=== PATIENT | female | born 1935 | race Caucasian/White ===

== ENCOUNTER 2018-03-23 13:51 | Emergency (ER) | payer OTHER ==
[2018-03-23] MEDS ORDERED: FENTANYL CITR 100 MCG/2 ML ONE (14:22)
[2018-03-23] MEDS ORDERED: ONDANSETRON 4 MG/2 ML VIAL ONE (14:22)
[2018-03-23] MEDS ORDERED: NA CHLORIDE 0.9% 1,000 ML ONE (14:22)
[2018-03-23] MEDS ORDERED: NA CHLORIDE 0.9% 100 ML IV ONE (14:22)
[2018-03-23] MEDS ORDERED: DEXAMETHASONE 10 MG/ML VIAL ONE (14:22)
[2018-03-23] MEDS ORDERED: DIAZEPAM 5 MG TABLET ONE (14:22)
--- NOTE | 2018-03-23 14:51 | RAD REPORT ---
EXAM DESCRIPTION: CTSpine Lumbar Wo Con03/23/2018 2:24 pm CLINICAL HISTORY: Left radiculopathy/back pain COMPARISON: None TECHNIQUE: Computed axial tomography lumbar spine was obtained with coronal and sagittal reconstruct ion. All CT scans are performed using dose optimization technique as appropriate and may include automated exposure control or mA/KV adjustment according to patient size. FINDINGS: No fracture is seen. No dislocation is noted. L2-3 disc is thinned. Vacuum phenomena is seen. A disc bulge is present. Disc bulge is present at L3-4. Mild narrowing of the thecal sac is seen. Disc bulge ligamentum flavum and facet hypertrophy is present at L4-5. Thecal sac measures 9 millimet ers. Mild to moderate narrowing of the right neural foramina is seen. Mild anterior subluxation of L5 on S1 is seen. Disc bulge is present. A 7 millimeter left renal calculus is present. Low-density right renal masses are present largest lashay suring 4.2 centimeters. IMPRESSION: Negative for a lumbar fracture. Spondylosis. Mild central spinal stenosis is present L4-5 with mild to moderate right foraminal steno sis Nonobstructing left renal calculus Low-density right renal masses. Nonemergent renal ultrasound is recommended If clinically indicated further evaluation lumbar spine could be obtained with MRI as it is more sens itive in detecting spinal canal/neural foraminal pathology
[2018-03-23 15:17] LABS: Absolute Lymphocytes (CBC) 1.3 K/uL (0.7-4.9); Absolute Monocytes 0.3 K/uL (0.1-1.3); Absolute Neutrophil 2.8 K/uL (1.8-8.0); Basophils % 0.3 % (0-1.3); Eosinophils % 0.2 % (0-4.4); Hematocrit 41.9 % (36.0-45.0); Lymphocytes % 28.7 % (15.3-44.8); MCH 29.8 pg (27.0-35.0); MCV 88.3 fL (80-100); MPV 9.2 fL (7.6-11.3); Monocytes % 6.9 % (3.3-12.3); RBC Red Blood Cell Count 4.75 M/uL (3.86-4.86)
[2018-03-23 15:32] LABS: ALT/SGPT 24 U/L (12-78); AST/SGOT 28 U/L (15-37); Albumin 4.3 g/dL (3.4-5.0); Alkaline Phosphatase 66 U/L (45-117); BUN Blood Urea Nitrogen 10 mg/dL (7-18); Bicarbonate 31 mmol/L (21-32); Bilirubin Total 0.5 mg/dL (0.2-1.0); Glucose Level 73 mg/dL (74-106); Lipase 286 U/L (73-393); Potassium 3.6 mmol/L (3.5-5.1); Protein, Total 8.7 g/dL (6.4-8.2); Sodium Level 140 mmol/L (136-145)
--- NOTE | 2018-03-23 15:54 | ER ---
Nurse's Notes [facility] Name: Cristina Jones Age: 82 yrs Sex: Female : 1935 Arrival Date: 03/23/2018 Time: 13:53 Bed 11 Private MD: Giovanny Lynch R Diagnosis: Low back pain;Sciatica;Urinary tract infection, site not specified;Spinal stenosis, lumbosacral region Presentation: 03/23 13:59 Presenting complaint: Patient states: pain to Lower back, more on the left, going into ch the buttock, hip and leg. This has been going for the past two weeks, getting worse. Transition of care: patient was not received from another setting of care. Onset of symptoms was March 10, 2018. Risk Assessment: Do you want to hurt yourself or someone else? Patient reports no desire to harm self or others. Initial Sepsis Screen: Does the patient meet any 2 criteria? No. Patient's initial sepsis screen is negative. Does the patient have a suspected source of infection? No. Patient's initial sepsis screen is negative. Care prior to arrival: None. 13:59 Method Of Arrival: Wheelchair 13:59 Acuity: MARVIN 4 Triage Assessment: 14:01 General: Appears in no apparent distress. uncomfortable, Behavior is calm, cooperative, appropriate for age. Pain: Complains of pain in low back area, left gluteus ashley and left leg Pain currently is 10 out of 10 on a pain scale. Musculoskeletal: Capillary refill < 3 seconds, in bilateral fingers. toes. Historical: - Allergies: 14:01 Augmentin; 14:01 Codeine (Vomiting); 14:01 PENICILLINS; - PMHx: 14:01 Hypertension; resolved; staph infection in nose; ruptured disk in neck; - PSHx: 14:01 Heart stents; - Immunization history:: Adult Immunizations up to date. - Social history:: Smoking status: Patient/guardian denies using tobacco. - Ebola Screening: : Patient negative for fever greater than or equal to 101.5 degrees Fahrenheit, and additional compatible Ebola Virus Disease symptoms Patient denies exposure to infectious person Patient denies travel to an Ebola-affected area in the 21 days before illness onset No symptoms or risks identified at this time. - Family history:: not pertinent. Screenin:11 Abuse screen: Denies threats or abuse. Denies injuries from another. Nutritional ch screening: No deficits noted. Tuberculosis screening: No symptoms or risk factors identified. Fall Risk None identified. Assessment: 14:11 General: Appears in no apparent distress. comfortable, Behavior is calm, cooperative, ch appropriate for age. Neuro: No deficits noted. Level of Consciousness is awake, alert, obeys commands, Oriented to person, place, time, situation. Respiratory: Airway is patent Respiratory effort is even, unlabored. GI: No signs and/or symptoms were reported involving the gastrointestinal system. : Reports difficulty urinating. 15:16 Reassessment: Patient appears in no apparent distress at this time. Patient is alert, rv oriented x 3, equal unlabored respirations, skin warm/dry/pink. PATIENT REFUSED ANY PAIN MEDICATION. Vital Signs: 14:01 BP 150 / 88; Pulse 89; Resp 16; Temp 98.1; Pulse Ox 99% on R/A; Weight 49.9 kg; Height 4 ft. 11 in. (149.86 cm); Pain 10/10; 14:01 Body Mass Index 22.22 (49.90 kg, 149.86 cm) ED Course: 13:53 Patient arrived in ED. mr 13:54 Giovanny Lynch MD is Private Physician. mr 14:00 Triage completed. 14:01 Arm band placed on left wrist. Patient placed in an exam room, on a stretcher. 14:04 Alise Silva, LAURA is Primary Nurse. 14:06 Sean Harrison MD is Attending Physician. [facility] 14:11 No apparent distress. Resting quietly. 14:11 Patient has correct armband on for positive identification. Bed in low position. Call light in reach. Side rails up X 1. Adult w/ patient. Warm blanket given. Pillow given. 14:11 No provider procedures requiring assistance completed. ch 14:25 CT Lumbar Spine Wo Con In Process Unspecified. EDMS 15:53 Giovanny Lynch MD is Referral Physician. kate 16:47 IV discontinued, bleeding controlled, No redness/swelling at site. Pressure dressing rv applied. Administered Medications: 15:05 Drug: NS 0.9% 1000 ml Route: IV; Rate: 125 ml/hr; Site: right antecubital; rv 16:46 Follow up: IV Status: IV converted to saline lock rv 15:05 Drug: Decadron - Dexamethasone 10 mg Route: IVP; Site: right antecubital; rv 16:22 Drug: Rocephin - (cefTRIAXone) 1 grams Route: IVPB; Infused Over: 30 mins; Site: right rv antecubital; 16:45 Follow up: Response: Medication administered at discharge.; IV Status: Completed rv infusion 16:45 Not Given (Patient Refused): fentaNYL (PF) 25 mcg IVP once rv 16:45 Not Given (Patient Refused): Zofran 4 mg IVP once; over 2 minutes rv 16:45 Not Given (Patient Refused): Valium 5 mg PO once rv 16:46 Not Given (Patient Refused): fentaNYL (PF) 25 mcg IVP once rv Outcome: 15:53 Discharge ordered by MD. love 16:46 Discharged to home via wheelchair. rv 16:46 Condition: improved 16:46 Discharge instructions given to patient, family, Instructed on discharge instructions, follow up and referral plans. medication usage, Demonstrated understanding of instructions, follow-up care, medications, Prescriptions given X 5 16:47 Patient left the ED. rv Signatures: Dispatcher [employer] EDMS Alise Silva, Sean Staley RN, ch, MD MD cha Rivera, Mary mr Vicente, Ronaldo, RN RN rv
--- NOTE | 2018-03-23 15:54 | EDPHYS ---
Physician Documentation [facility] Name: Cristina Jones Age: 82 yrs Sex: Female : 1935 Arrival Date: 03/23/2018 Time: 13:53 Bed 11 Private MD: Giovanny Lynch R ED Physician Sean Harrison HPI: 03/23 14:12 This 82 yrs old Female presents to ER via Wheelchair with complaints of Back kate Pain. 14:12 The patient presents with pain that is acute, with no known mechanism of injury. The kate symptoms are located in the low back, coccyx area, lumbar area and sacrum. Onset: The symptoms/episode began/occurred 2 day(s) ago. The pain radiates to the left low back and right low back. Associated signs and symptoms: The patient has no apparent associated signs or symptoms. The problem was sustained from unknown cause. Severity of symptoms: At their worst the symptoms were mild, moderate, in the emergency department the symptoms are unchanged. The patient has not experienced similar symptoms in the past. Historical: - Allergies: 14:01 Augmentin; ch 14:01 Codeine (Vomiting); ch 14:01 PENICILLINS; ch - PMHx: 14:01 Hypertension; resolved; staph infection in nose; ruptured disk in neck; ch - PSHx: 14:01 Heart stents; ch - Immunization history:: Adult Immunizations up to date. - Social history:: Smoking status: Patient/guardian denies using tobacco. - Ebola Screening: : Patient negative for fever greater than or equal to 101.5 degrees Fahrenheit, and additional compatible Ebola Virus Disease symptoms Patient denies exposure to infectious person Patient denies travel to an Ebola-affected area in the 21 days before illness onset No symptoms or risks identified at this time. - Family history:: not pertinent. ROS: 14:12 Constitutional: Negative for fever, chills, and weight loss, Eyes: Negative for injury, kate pain, redness, and discharge, ENT: Negative for injury, pain, and discharge, Neck: Negative for injury, pain, and swelling, Cardiovascular: Negative for chest pain, palpitations, and edema, Respiratory: Negative for shortness of breath, cough, wheezing, and pleuritic chest pain, Abdomen/GI: Negative for abdominal pain, nausea, vomiting, diarrhea, and constipation, : Negative for injury, bleeding, discharge, and swelling, MS/Extremity: Negative for injury and deformity, Skin: Negative for injury, rash, and discoloration, Neuro: Negative for headache, weakness, numbness, tingling, and seizure, Psych: Negative for depression, anxiety, suicide ideation, homicidal ideation, and hallucinations, Allergy/Immunology: Negative for hives, rash, and allergies, Endocrine: Negative for neck swelling, polydipsia, polyuria, polyphagia, and marked weight changes, Hematologic/Lymphatic: Negative for swollen nodes, abnormal bleeding, and unusual bruising. 14:12 Back: Positive for decreased range of motion, pain with movement, of the lumbar area and sacrum. Exam: 14:12 Constitutional: This is a well developed, well nourished patient who is awake, alert, kate and in no acute distress. Head/Face: Normocephalic, atraumatic. Eyes: Pupils equal round and reactive to light, extra-ocular motions intact. Lids and lashes normal. Conjunctiva and sclera are non-icteric and not injected. Cornea within normal limits. Periorbital areas with no swelling, redness, or edema. ENT: Nares patent. No nasal discharge, no septal abnormalities noted. Tympanic membranes are normal and external auditory canals are clear. Oropharynx with no redness, swelling, or masses, exudates, or evidence of obstruction, uvula midline. Mucous membranes moist. Neck: Trachea midline, no thyromegaly or masses palpated, and no cervical lymphadenopathy. Supple, full range of motion without nuchal rigidity, or vertebral point tenderness. No Meningismus. Chest/axilla: Normal chest wall appearance and motion. Nontender with no deformity. No lesions are appreciated. Cardiovascular: Regular rate and rhythm with a normal S1 and S2. No gallops, murmurs, or rubs. Normal PMI, no JVD. No pulse deficits. Respiratory: Lungs have equal breath sounds bilaterally, clear to auscultation and percussion. No rales, rhonchi or wheezes noted. No increased work of breathing, no retractions or nasal flaring. Abdomen/GI: Soft, non-tender, with normal bowel sounds. No distension or tympany. No guarding or rebound. No evidence of tenderness throughout. Female : Normal external genitalia. Skin: Warm, dry with normal turgor. Normal color with no rashes, no lesions, and no evidence of cellulitis. MS/ Extremity: Pulses equal, no cyanosis. Neurovascular intact. Full, normal range of motion. Neuro: Awake and alert, GCS 15, oriented to person, place, time, and situation. Cranial nerves II-XII grossly intact. Motor strength 5/5 in all extremities. Sensory grossly intact. Cerebellar exam normal. Normal gait. Psych: Awake, alert, with orientation to person, place and time. Behavior, mood, and affect are within normal limits. 14:12 Back: pain, that is mild, that is moderate, ROM is painful, decreased, normal spinal alignment noted, CVA tenderness, is absent, vertebral tenderness, is not appreciated, muscle spasm, is appreciated in the left low back and right low back. Vital Signs: 14:01 BP 150 / 88; Pulse 89; Resp 16; Temp 98.1; Pulse Ox 99% on R/A; Weight 49.9 kg; Height 4 ft. 11 in. (149.86 cm); Pain 10; 14:01 Body Mass Index 22.22 (49.90 kg, 149.86 cm) MDM: 14:06 Patient medically screened. [facility] 14:12 Data reviewed: vital signs, nurses notes, lab test result(s), radiologic studies. [facility] 03/23 14:11 Order name: CBC with Diff; Complete Time: 15:51 [facility] 03/23 14:11 Order name: Comprehensive Metabolic Panel; Complete Time: 15:51 [facility] 03/23 14:11 Order name: Urine Culture [facility] 03/23 14:11 Order name: CT Lumbar Spine Wo Con; Complete Time: 15:51 [facility] 03/23 14:11 Order name: Lipase; Complete Time: 15:51 [facility] 03/23 15:27 Order name: Urine Dipstick--Ancillary (enter results); Complete Time: 16:15 03/23 14:11 Order name: Urine Dipstick-Ancillary (obtain specimen); Complete Time: 15:26 [facility] 03/23 16:16 Order name: PO challenge: juice; Complete Time: 16:45 [facility] Administered Medications: 15:05 Drug: NS 0.9% 1000 ml Route: IV; Rate: 125 ml/hr; Site: right antecubital; rv 16:46 Follow up: IV Status: IV converted to saline lock rv 15:05 Drug: Decadron - Dexamethasone 10 mg Route: IVP; Site: right antecubital; rv 16:22 Drug: Rocephin - (cefTRIAXone) 1 grams Route: IVPB; Infused Over: 30 mins; Site: right rv antecubital; 16:45 Follow up: Response: Medication administered at discharge.; IV Status: Completed rv infusion 16:45 Not Given (Patient Refused): fentaNYL (PF) 25 mcg IVP once rv 16:45 Not Given (Patient Refused): Zofran 4 mg IVP once; over 2 minutes rv 16:45 Not Given (Patient Refused): Valium 5 mg PO once rv 16:46 Not Given (Patient Refused): fentaNYL (PF) 25 mcg IVP once rv Disposition: 03/23/18 15:53 Discharged to Home. Impression: Low back pain, Sciatica, Urinary tract infection, site not specified, Spinal stenosis, lumbosacral region. - Condition is Stable. - Discharge Instructions: Back Pain, Adult, Chronic Back Pain, Musculoskeletal Pain, Urinary Tract Infection, Adult, Back Injury Prevention, [id number], Back Pain, Adult, Cwqc-[id number], Back Exercises, Pdff-[id number]. - Prescriptions for Tramadol 50 mg Oral Tablet - take 1 tablet by ORAL route every 8 hours as needed; 26 tablet. Medrol (Stewart) 4 mg Oral Tablets, Dose Pack - take 1 tablet by ORAL route as directed - follow package instructions; 1 packet. Motrin IB 200 mg Oral Tablet - take 1 tablet by ORAL route every 6 hours As needed as needed with food; 40 tablet. Bactrim DS 800- 160 mg Oral Tablet - take 1 tablet by ORAL route every 12 hours for 5 days; 1 tablet. Valium 2 mg Oral Tablet - take 1 tablet by ORAL route every 8 hours As needed; 20 tablet. - Medication Reconciliation Form, Thank You Letter, Antibiotic Education, Prescription Opioid Use form. - Follow up: Giovanny Lynch; When: 2 - 3 days; Reason: Recheck today's complaints, Continuance of care, Re-evaluation by your physician. - Problem is new. - Symptoms have improved. Signatures: Dispatcher [employer] Alise Barraza, RN RN Sean Perales MD MD cha Vicente, Ronaldo, RN RN rv Corrections: (The following items were deleted from the chart) 15:55 15:53 03/23/2018 15:53 Discharged to Home. Impression: Low back pain; Sciatica; Urinary kate tract infection, site not specified. Condition is Stable. Discharge Instructions: Back Pain, Adult, Chronic Back Pain, Musculoskeletal Pain, Back Injury Prevention, Xquw-kc-Jeap, Back Pain, Adult, Vqzx-[id number]-Phcu, Back Exercises, Vzjv-[id number]-Dzcp. Prescriptions for Robaxin 500 mg Oral Tablet - take 1 tablet by ORAL route every 6 hours As needed; 40 tablet, Tramadol 50 mg Oral Tablet - take 1 tablet by ORAL route every 8 hours as needed; 26 tablet, Medrol (Stewart) 4 mg Oral Tablets, Dose Pack - take 1 tablet by ORAL route as directed - follow package instructions; 1 packet, Motrin IB 200 mg Oral Tablet - take 1 tablet by ORAL route every 6 hours As needed as needed with food; 40 tablet. and Forms are Medication Reconciliation Form, Thank You Letter, Antibiotic Education, Prescription Opioid Use. Follow up: Giovanny Lynch; When: 2 - 3 days; Reason: Recheck today's complaints, Continuance of care, Re-evaluation by your physician. Problem is new. Symptoms have improved. [facility] 16:47 15:55 03/23/2018 15:53 Discharged to Home. Impression: Low back pain; Sciatica; Urinary rv tract infection, site not specified; Spinal stenosis, lumbosacral region. Condition is Stable. Discharge Instructions: Back Pain, Adult, Chronic Back Pain, Musculoskeletal Pain, Back Injury Prevention, [id number], Back Pain, Adult, Ygid-[id number], Back Exercises, Itps-uo-Bovj, Urinary Tract Infection, Adult. Prescriptions for Robaxin 500 mg Oral Tablet - take 1 tablet by ORAL route every 6 hours As needed; 40 tablet, Tramadol 50 mg Oral Tablet - take 1 tablet by ORAL route every 8 hours as needed; 26 tablet, Medrol (Stewart) 4 mg Oral Tablets, Dose Pack - take 1 tablet by ORAL route as directed - follow package instructions; 1 packet, Motrin IB 200 mg Oral Tablet - take 1 tablet by ORAL route every 6 hours As needed as needed with food; 40 tablet, Bactrim DS 800-160 mg Oral Tablet - take 1 tablet by ORAL route every 12 hours for 5 days; 1 tablet. and Forms are Medication Reconciliation Form, Thank You Letter, Antibiotic Education, Prescription Opioid Use. Follow up: Giovanny Lynch; When: 2 - 3 days; Reason: Recheck today's complaints, Continuance of care, Re-evaluation by your physician. Problem is new. Symptoms have improved. kate
[2018-03-23 15:55] LABS: Urine Blood NEGATIVE (NEG); Urine Glucose NEGATIVE (NEG); Urine Protein NEGATIVE (NEG); Urine pH 6.5 (5.0-7.0)
[2018-03-23] MEDS ORDERED: CEFTRIAXONE/SWI 1gm 1 GM/10 ML SYR ONE (16:12)
== END 2018-03-23 16:47 | disposition home or self-care (01) ==
LOC: ER 13:51
DX: M54.30 Sciatica, unspecified side (principal); N39.0 Urinary tract infection, site not specified; M48.07 Spinal stenosis, lumbosacral region; Z88.0 Allergy status to penicillin; Z88.1 Allergy status to other antibiotic agents; Z88.5 Allergy status to narcotic agent; Z95.818 Presence of other cardiac implants and grafts
CPT/HCPCS: 36415; 72131; 80053; 81003; 83690; 85025; 87086; 87088; 96361; 96365; 96375; 99283; J0696; J1100; J2405; J7030; J3010

== ENCOUNTER 2018-07-16 11:28 | Emergency (ER) | payer OTHER ==
[2018-07-16 13:54] LABS: Absolute Lymphocytes (CBC) 1.6 K/uL (0.7-4.9); Absolute Monocytes 0.6 K/uL (0.1-1.3); Absolute Neutrophil 6.5 K/uL (1.8-8.0); Basophils % 0.3 % (0-1.3); Eosinophils % 0.1 % (0-4.4); Hematocrit 40.2 % (36.0-45.0); Lymphocytes % 18.2 % (15.3-44.8); MPV 9.2 fL (7.6-11.3); Monocytes % 7.3 % (3.3-12.3); RBC Red Blood Cell Count 4.57 M/uL (3.86-4.86)
[2018-07-16 14:16] LABS: Albumin 4.1 g/dL (3.4-5.0); Bilirubin Direct 0.2 mg/dL (0-0.2); Bilirubin Total 1.1 mg/dL (0.2-1.0); Potassium 3.3 mmol/L (3.5-5.1); Protein, Total 7.9 g/dL (6.4-8.2)
[2018-07-16 14:30] LABS: Protime INR 1.11
--- NOTE | 2018-07-16 16:29 | RAD REPORT ---
EXAM DESCRIPTION: CT - Abdomen Pelvis W Contrast - 07/16/2018 4:03 pm CLINICAL HISTORY: Abdominal pain, rectal bleeding COMPARISON: MRI hip/pelvis February 2018. TECHNIQUE: Biphasic, helical CT imaging of the abdomen and pelvis was performed following 100 ml non -ionic IV contrast. No oral contrast was given. All CT scans are performed using dose optimization technique as appropriate and may include automated exposure control or mA/KV adjustment according to patient size. FINDINGS: No suspicious findings in the lung bases. The liver, spleen, and pancreas show no suspicious findings. Gallbladder is absent. No biliary tree d ilatation. Symmetric renal function is seen with no hydronephrosis or suspicious renal mass. No pyelonephritis o r acute parenchymal process. A 12 millimeter nonobstructing calculus is present in the central left k idney. Patient has multiple cysts in the right kidney. Urinary bladder is mostly contracted limiting assessment. No bladder calculus. No adrenal abnormalities. No gastric dilatation or wall thickening. No dilated small bowel loop or acute small bowel finding. A t the splenic flexure and extending several cm into the descending colon there is circumferential wal l thickening. Mild stranding is present in the adjacent fat. Patient has very prominent diverticulosi s in a tortuous and redundant sigmoid colon. Mid and distal rectum show mild wall thickening and virgen a. There is trace stranding in the adjacent fat. No free air, free fluid or inflammatory stranding. No hernia, mass or bulky lymphadenopathy. Multip le phleboliths are seen in the pelvis. Uterus is somewhat prominent likely due to a fundal fibroid. F inding is similar to the MRI. Disc and bony extensive degenerative changes are present. No pathologic bone process seen. IMPRESSION: Splenic flexure and proximal descending colon wall thickening and edema. There is divert iculosis present and this is most likely acute diverticulitis rather than nonspecific colitis. Mild mid and distal rectal wall thickening or edema that may be diverticulitis or colitis. No abscess, free air or surgically emergent finding.
--- NOTE | 2018-07-16 16:45 | ER ---
Nurse's Notes [facility] Name: Cristina Jones Age: 82 yrs Sex: Female : 1935 Arrival Date: 07/16/2018 Time: 11:29 Bed 2 Private MD: Giovanny Lynch R Diagnosis: Rectal Bleeding, diverticulitis Presentation: 07/16 11:40 Presenting complaint: Patient states: rectal bleeding and generalized weakness x 2 sv days, has hemorrhoids and diverticulitis. Reports that she was constipated and then ate something that gave her abd cramping, had a BM and now has dark red blood and "grainy". Transition of care: patient was not received from another setting of care. Onset of symptoms was June 13, 2018. Care prior to arrival: None. 11:40 Method Of Arrival: Ambulatory sv 11:40 Acuity: MARVIN 3 sv Triage Assessment: 11:40 General: Appears in no apparent distress. comfortable, Behavior is calm, cooperative, sv appropriate for age. Pain: Complains of pain in back Pain currently is 5 out of 10 on a pain scale. Is chronic. Neuro: Level of Consciousness is awake, alert, obeys commands, Oriented to person, place, time, situation, Gait is steady. Neuro: Reports weakness. Respiratory: Respiratory effort is even, unlabored, Respiratory pattern is regular, symmetrical. GI: Reports diarrhea, rectal bleeding, hemorrhoids. Historical: - Allergies: 11:43 Augmentin; sv 11:43 Codeine (Vomiting); sv 11:43 PENICILLINS; sv - PMHx: 11:43 Hypertension; resolved; ruptured disk in neck; staph infection in nose; sv - PSHx: 11:43 Heart stents; sv - Immunization history:: Flu vaccine is not up to date. - Social history:: Smoking status: Patient/guardian denies using tobacco. - Ebola Screening: : No symptoms or risks identified at this time. Screenin:49 Abuse screen: Denies threats or abuse. Denies injuries from another. Nutritional hb screening: No deficits noted. Tuberculosis screening: No symptoms or risk factors identified. Fall Risk None identified. Assessment: 13:49 General: Appears in no apparent distress. Behavior is calm, cooperative. Pain: Pain hb currently is 5 out of 10 on a pain scale. Neuro: Level of Consciousness is awake, alert, obeys commands, Oriented to person, place, time, situation. Cardiovascular: Heart tones S1 S2 present Capillary refill < 3 seconds Patient's skin is warm and dry. Respiratory: Airway is patent Respiratory effort is even, unlabored, Respiratory pattern is regular, symmetrical, Breath sounds are clear bilaterally. GI: Abdomen is non-distended, Bowel sounds present X 4 quads. Abd is soft X 4 quads Abdomen is tender to palpation diffusely Reports lower abdominal pain, upper abdominal pain, bloody stool. : No signs and/or symptoms were reported regarding the genitourinary system. EENT: No signs and/or symptoms were reported regarding the EENT system. Derm: Skin is intact, is healthy with good turgor. Musculoskeletal: No signs and/or symptoms reported regarding the musculoskeletal system. Vital Signs: 11:44 BP 129 / 76; Pulse 76; Resp 16; Temp 98.4; Pulse Ox 97% ; Weight 45.36 kg; Height 4 ft. sv 11 in. (149.86 cm); Pain 5/10; 14:00 BP 126 / 70; Pulse 72; Resp 17; Pulse Ox 97% on R/A; sg 16:00 BP 132 / 72; Pulse 77; Resp 19; Pulse Ox 98% ; sg 11:44 Body Mass Index 20.20 (45.36 kg, 149.86 cm) sv 11:44 Pain is chronic back pain, no abd pain sv ED Course: 11:29 Patient arrived in ED. ag5 11:29 Giovanny Lynch MD is Private Physician. ag5 11:43 Triage completed. sv 11:46 Arm band placed on. sv 13:23 Josh Moran MD is Attending Physician. kdr 13:42 Inserted saline lock: 20 gauge in right antecubital area, using aseptic technique. hb Blood collected. 13:49 Patient has correct armband on for positive identification. Placed in gown. Bed in low hb position. Call light in reach. Side rails up X 1. 14:27 Ryan Mishra, LAURA is Primary Nurse. sg 15:[address] via stretcher. vr 16:03 CT Abd/Pelvis - W/Contrast In Process Unspecified. EDMS 16:43 Giovanny Lynch MD is Referral Physician. kdr Administered Medications: 17:00 Drug: Flagyl 500 mg Route: PO; sg 17:02 Not Given (Other Intervention Used): Cipro 500 mg PO once sg 17:03 Drug: LevaQUIN 500 mg Route: PO; sg Outcome: 16:44 Discharge ordered by . kdr 17:03 Patient left the ED. sg Signatures: Dispatcher [employer] Millie Connelly RN RN sv Gay, Steven, RN RN sg Rittger, Kevin, MD MD kdr Davis, Victoria vr Baxter, Heather, RN RN hb Gaskin, Ajare ag5 Corrections: (The following items were deleted from the chart) 11:51 11:40 Presenting complaint: Patient states: rectal bleeding x 2 days, has hemorrhoids sv and diverticulitis. Reports that she was constipated and then ate something that gave her abd cramping, had a BM and now has dark red blood and "grainy". sv 17:01 17:00 Cipro 500 mg PO sg sg
--- NOTE | 2018-07-16 16:45 | EDPHYS ---
Physician Documentation [facility] Name: Cristina Jones Age: 82 yrs Sex: Female : 1935 Arrival Date: 07/16/2018 Time: 11:29 Bed 2 Private MD: Giovanny Lynch R ED Physician Josh Moran HPI: 07/16 16:39 This 82 yrs old Female presents to ER via Ambulatory with complaints of kdr Bloody Stools. 16:39 The patient presents to the emergency department with rectal bleeding, a small amount, kdr bright red blood with bowel movement, in toilet bowl, with multiple such episodes. Onset: The symptoms/episode began/occurred gradually, 2 day(s) ago. Abdominal pain: none is appreciated. Modifying factors: The symptoms are alleviated by nothing, the symptoms are aggravated by movement, pressure. Associated signs and symptoms: The patient has no apparent associated signs or symptoms. Severity of symptoms: At their worst the symptoms were mild in the emergency department the symptoms are unchanged. The patient has experienced similar episodes in the past, a few times. The patient has not recently seen a physician. Historical: - Allergies: 11:43 Augmentin; sv 11:43 Codeine (Vomiting); sv 11:43 PENICILLINS; sv - PMHx: 11:43 Hypertension; resolved; ruptured disk in neck; staph infection in nose; sv - PSHx: 11:43 Heart stents; sv - Immunization history:: Flu vaccine is not up to date. - Social history:: Smoking status: Patient/guardian denies using tobacco. - Ebola Screening: : No symptoms or risks identified at this time. ROS: 16:39 Constitutional: Negative for fever, chills, and weight loss, Eyes: Negative for injury, kdr pain, redness, and discharge, ENT: Negative for injury, pain, and discharge, Neck: Negative for injury, pain, and swelling, Cardiovascular: Negative for chest pain, palpitations, and edema, Respiratory: Negative for shortness of breath, cough, wheezing, and pleuritic chest pain, Back: Negative for injury and pain, : Negative for injury, bleeding, discharge, and swelling, MS/Extremity: Negative for injury and deformity, Skin: Negative for injury, rash, and discoloration, Neuro: Negative for headache, weakness, numbness, tingling, and seizure activity. Psych: Negative for depression, anxiety, suicide ideation, homicidal ideation, and hallucinations, Allergy/Immunology: Negative for hives, rash, and allergies, Endocrine: Negative for neck swelling, polydipsia, polyuria, polyphagia, and marked weight changes, Hematologic/Lymphatic: Negative for swollen nodes, abnormal bleeding, and unusual bruising. 16:39 Abdomen/GI: Positive for rectal bleeding, Negative for nausea and vomiting, abdominal distension, anorexia, hematemesis, black/tarry stool, bowel incontinence. Exam: 16:39 Constitutional: This is a well developed, well nourished patient who is awake, alert, kdr and in no acute distress. Head/Face: Normocephalic, atraumatic. Eyes: Pupils equal round and reactive to light, extra-ocular motions intact. Lids and lashes normal. Conjunctiva and sclera are non-icteric and not injected. Cornea within normal limits. Periorbital areas with no swelling, redness, or edema. Neck: Trachea midline, no thyromegaly or masses palpated, and no cervical lymphadenopathy. Supple, full range of motion without nuchal rigidity, or vertebral point tenderness. No Meningismus. Chest/axilla: Normal chest wall appearance and motion. Nontender with no deformity. No lesions are appreciated. Cardiovascular: Regular rate and rhythm with a normal S1 and S2. No gallops, murmurs, or rubs. Normal PMI, no JVD. No pulse deficits. Respiratory: Lungs have equal breath sounds bilaterally, clear to auscultation and percussion. No rales, rhonchi or wheezes noted. No increased work of breathing, no retractions or nasal flaring. Abdomen/GI: Soft, non-tender, with normal bowel sounds. No distension or tympany. No guarding or rebound. No evidence of tenderness throughout. Back: No spinal tenderness. No costovertebral tenderness. Full range of motion. Skin: Warm, dry with normal turgor. Normal color with no rashes, no lesions, and no evidence of cellulitis. MS/ Extremity: Pulses equal, no cyanosis. Neurovascular intact. Full, normal range of motion. Neuro: Awake and alert, GCS 15, oriented to person, place, time, and situation. Cranial nerves II-XII grossly intact. Motor strength 5/5 in all extremities. Sensory grossly intact. Cerebellar exam normal. Normal gait. Psych: Awake, alert, with orientation to person, place and time. Behavior, mood, and affect are within normal limits. 16:39 Abdomen/GI: Rectal exam: is unremarkable, rectal tone normal, Stool: normal, guthrie, guaiac negative, hemorrhoid(s), external, without bleeding, without inflammation, without thrombosis, without pain. Vital Signs: 11:44 BP 129 / 76; Pulse 76; Resp 16; Temp 98.4; Pulse Ox 97% ; Weight 45.36 kg; Height 4 ft. sv 11 in. (149.86 cm); Pain 5/10; 14:00 BP 126 / 70; Pulse 72; Resp 17; Pulse Ox 97% on R/A; sg 16:00 BP 132 / 72; Pulse 77; Resp 19; Pulse Ox 98% ; sg 11:44 Body Mass Index 20.20 (45.36 kg, 149.86 cm) sv 11:44 Pain is chronic back pain, no abd pain sv MDM: 16:39 Data reviewed: vital signs, nurses notes, lab test result(s), radiologic studies. kdr Counseling: I had a detailed discussion with the patient and/or guardian regarding: the historical points, exam findings, and any diagnostic results supporting the discharge/admit diagnosis, lab results, radiology results, the need for outpatient follow up. 16:44 Patient medically screened. kdr 07/16 13:23 Order name: Basic Metabolic Panel; Complete Time: 15:33 kdr 07/16 13:23 Order name: CBC with Diff; Complete Time: 15:33 kdr 07/16 13:23 Order name: Creatinine for Radiology; Complete Time: 15:33 kdr 07/16 13:23 Order name: Hepatic Function; Complete Time: 15:33 kdr 07/16 13:23 Order name: Lipase; Complete Time: 15:33 kdr 07/16 13:23 Order name: PT-INR; Complete Time: 15:33 kdr 07/16 13:23 Order name: IV Saline Lock; Complete Time: 13:53 kdr 07/16 13:23 Order name: Labs collected and sent; Complete Time: 13:53 kdr 07/16 13:46 Order name: Type And Screen; Complete Time: 15:33 kdr 07/16 15:33 Order name: CT Abd/Pelvis - W/Contrast; Complete Time: 16:37 kdr 07/16 15:37 Order name: ABO/RH no charge; Complete Time: 16:11 EDMS Administered Medications: 17:00 Drug: Flagyl 500 mg Route: PO; sg 17:02 Not Given (Other Intervention Used): Cipro 500 mg PO once sg 17:03 Drug: LevaQUIN 500 mg Route: PO; sg Disposition: 07/16/18 16:44 Discharged to Home. Impression: Rectal Bleeding, diverticulitis. - Condition is Stable. - Discharge Instructions: Diverticulitis, [id number], Abdominal Pain, Adult, [id number], Rectal Bleeding, [id number]. - Prescriptions for Bentyl 20 mg Oral Tablet - take 1 tablet by ORAL route every 6 hours As needed; 20 tablet. Flagyl 500 mg Oral Tablet - take 1 tablet by ORAL route every 6 hours for 10 days; 40 tablet. Pepcid 20 mg Oral Tablet - take 1 tablet by ORAL route once daily; 20 tablet. Levaquin 500 mg Oral Tablet - take 1 tablet by ORAL route once daily for 10 days; 10 tablet. - Medication Reconciliation Form, Thank You Letter, Antibiotic Education, Prescription Opioid Use form. - Follow up: Giovanny Lynch MD; When: 2 - 3 days; Reason: If symptoms return, Further diagnostic work-up, Recheck today's complaints, Continuance of care, Re-evaluation by your physician. - Problem is an acute exacerbation. - Symptoms have improved. Signatures: Dispatcher [employer] EDMS Millie Hurt RN RN Ryan Mishra RN RN Josh Moran MD MD kdr Corrections: (The following items were deleted from the chart) 17:03 16:44 07/16/2018 16:44 Discharged to Home. Impression: Rectal Bleeding, diverticulitis. sg Condition is Stable. Forms are Medication Reconciliation Form, Thank You Letter, Antibiotic Education, Prescription Opioid Use. Follow up: Giovanny Lynch; When: 2 - 3 days; Reason: If symptoms return, Further diagnostic work-up, Recheck today's complaints, Continuance of care, Re-evaluation by your physician. Problem is an acute exacerbation. Symptoms have improved. kdr
[2018-07-16] MEDS ORDERED: CIPROFLOXACIN HCL 500 MG TAB ONE (17:03)
[2018-07-16] MEDS ORDERED: metroNIDAZOLE 500 MG TABLET ONE (17:03)
[2018-07-16] MEDS ORDERED: levoFLOXacin 500 MG TAB ONE (17:07)
== END 2018-07-16 17:03 | disposition home or self-care (01) ==
LOC: ER 11:28
DX: K57.92 Diverticulitis of intestine, part unspecified, without perforation or abscess without bleeding (principal); Z95.818 Presence of other cardiac implants and grafts; Z88.0 Allergy status to penicillin; Z88.1 Allergy status to other antibiotic agents; Z88.5 Allergy status to narcotic agent
CPT/HCPCS: 36415; 74177; 80048; 80076; 83690; 85025; 85610; 86850; 86900; 86901; 99284; Q9967

== ENCOUNTER 2024-04-02 16:00 | Emergency (ER) | payer OTHER ==
[2024-04-02] MEDS ORDERED: NA CHLORIDE 0.9% 500 ML ONE (17:54)
[2024-04-02 17:59] LABS: Specific Gravity 1.019 (1.005-1.030); Sqamous Epithelial <5 /HPF (None Seen); Urine Bacteria <20 /HPF (<20); Urine Bilirubin NEGATIVE (Negative); Urine Blood Negative (Negative); Urine Clarity Turbid (Clear); Urine Color Light-Yellow (Yellow); Urine Culture Reflex Order NOT NEEDED; Urine Glucose NEGATIVE (Negative); Urine Ketones 1+ (Negative); Urine Microscopic Reflex YN ORDER UMIC; Urine Mucus Slight /HPF (None Seen); Urine Nitrite NEGATIVE (Negative); Urine Protein TRACE (Negative); Urine RBC <5 /HPF (None Seen); Urine Urobilinogen Normal (Normal); Urine WBC <5 /HPF (<5); Urine pH 5.5 (5.0-7.0)
[2024-04-02 17:59] LABS: Absolute Lymphocytes (CBC) 1.2 K/uL (0.7-4.9); Absolute Monocytes 0.4 K/uL (0.1-1.3); Basophils % 0.7 % (0-1.3); Eosinophils % 0.3 % (0-4.4); Hematocrit 35.7 % (36.0-45.0); Hemoglobin 11.6 g/dL (12.0-15.0); MCH 27.8 pg (27.0-35.0); MCHC 32.5 g/dL (32.0-36.0); MCV 85.6 fL (80-100); MPV 8.3 fL (7.6-11.3); Monocytes % 6.4 % (3.3-12.3); Neutrophils % 71.6 % (41.7-73.7); Platelets 267 thou/uL (152-406); RBC Red Blood Cell Count 4.18 M/uL (3.86-4.86); Red Cell Distribution Width 14.8 % (12.1-15.2)
[2024-04-02 18:01] LABS: PT Prothrombin Time 12.6 SECONDS (9.4-12.5); Protime INR 1.13
--- NOTE | 2024-04-02 18:01 | RAD REPORT ---
EXAMINATION: ONE VIEW CHEST XR CLINICAL INDICATION: Female, 88 years old.,DYSPNEA TECHNIQUE: Frontal chest projection is submitted. Examination is limited by patient positioning and t echnique. COMPARISON: 07/29/2016 FINDINGS: The lungs are mildly hyperinflated. Left basilar 2.3 cm nodular airspace opacity, may reflect a focus of pneumonitis versus a nodule. Small calcified right hilar lymph nodes are stable. No pneumothorax or sizable effusion. The heart is normal in size. IMPRESSION: Left basilar 2.3 cm nodular airspace opacities, may reflect a focus of pneumonitis versus a nodule. A follow-up CT would be recommended following resolution of any acute symptoms to evaluate for an underlying suspicious nodule.
[2024-04-02 18:19] LABS: Albumin 3.9 g/dL (3.4-5.0); Albumin/Globulin Ratio 0.8 (1.1-1.8); Anion Gap 9.1 mEq/L (5.0-15.0); Bilirubin Direct 0.2 mg/dL (0-0.2); Bilirubin Indirect, Calculated 0.6 mg/dL (0.2-0.8); Bilirubin Total 0.8 mg/dL (0.2-1.0); Globulin 4.6 g/dL (2.3-3.5); Magnesium 2.1 mg/dL (1.6-2.4); Potassium 3.1 mEq/L (3.5-5.1); Protein, Total 8.5 g/dL (6.4-8.2); Troponin High Sensitivity 14.8 pg/mL (<58.9)
--- NOTE | 2024-04-02 18:26 | RAD REPORT ---
EXAMINATION: Extrem Venous W Compress Fred CLINICAL INDICATION: [facility] MAIN Pain;Swelling Bed Name: 19 N TECHNIQUE: Complete bilateral duplex sonography of the BILATERAL lower extremity veins was performed. The examination included compression for vein patency, color Doppler imaging and flow augmentation in response to distal compression of the distal external iliac, common femoral, femoral, popliteal, t ibial, and great and small saphenous veins. COMPARISON: No prior exam. FINDINGS: Duplex sonography testing of the veins of the BILATERAL lower extremity was performed. Color flow laci ging shows all veins to be compressible with [id number] color filling. Pulsatile and phasic flow is present within all lower extremity deep and superficial veins examined. IMPRESSION: There is no deep vein or superficial vein thrombosis.
--- NOTE | 2024-04-02 18:54 | EDPHYS ---
Physician Documentation [facility] Name: Cristina Jones Age: 88 yrs Sex: Female : 1935 Arrival Date: 04/02/2024 Time: 16:00 Bed 19 Private MD: ED Physician Saen Harrison HPI: 04/02 18:47 This 88 yrs old Female presents to ER via Ambulatory with complaints of Leg kate Swelling - BL sent by next level. 18:47 The patient presents with pain, tenderness. The complaints affect the right leg and kate left leg. Context: The problem was sustained at an unknown site, resulted from an unknown cause. Onset: The symptoms/episode began/occurred 1 week(s) ago. Modifying factors: The symptoms are alleviated by nothing. elevating leg, the symptoms are aggravated by weight bearing. Associated signs and symptoms: The patient has no apparent associated signs or symptoms. Treatment prior to arrival includes: no previous treatment. Severity of symptoms: At their worst the symptoms were mild, moderate, in the emergency department the symptoms are unchanged. The patient has experienced similar episodes in the past, multiple times. Historical: - Allergies: 16:20 Augmentin; aa5 16:20 Codeine (Vomiting); aa5 16:20 PENICILLINS; aa5 - PMHx: 16:20 Hypertension; resolved; ruptured disk in neck; staph infection in nose; aa5 - PSHx: 16:20 Stented artery; aa5 - Immunization history:: Adult Immunizations unknown. - Infectious Disease History:: Denies. - Social history:: Smoking status: Patient denies any tobacco usage or history of. - Family history:: not pertinent. ROS: 18:47 Constitutional: Negative for fever, chills, and weight loss, Eyes: Negative for injury, kate pain, redness, and discharge, ENT: Negative for injury, pain, and discharge, Neck: Negative for injury, pain, and swelling, Cardiovascular: Negative for chest pain, palpitations, and edema, Respiratory: Negative for shortness of breath, cough, wheezing, and pleuritic chest pain, Abdomen/GI: Negative for abdominal pain, nausea, vomiting, diarrhea, and constipation, Back: Negative for injury and pain, : Negative for injury, bleeding, discharge, and swelling, Skin: Negative for injury, rash, and discoloration, Neuro: Negative for headache, weakness, numbness, tingling, and seizure, Psych: Negative for depression, anxiety, suicide ideation, homicidal ideation, and hallucinations, Allergy/Immunology: Negative for hives, rash, and allergies, Endocrine: Negative for neck swelling, polydipsia, polyuria, polyphagia, and marked weight changes, Hematologic/Lymphatic: Negative for swollen nodes, abnormal bleeding, and unusual bruising, 18:47 MS/extremity: Positive for ecchymosis, pain, of the right leg and left leg, HX OF VASCULITIS, Exam: 18:47 Constitutional: This is a well developed, well nourished patient who is awake, alert, kate and in no acute distress. Head/Face: Normocephalic, atraumatic. Eyes: Pupils equal round and reactive to light, extra-ocular motions intact. Lids and lashes normal. Conjunctiva and sclera are non-icteric and not injected. Cornea within normal limits. Periorbital areas with no swelling, redness, or edema. ENT: Nares patent. No nasal discharge, no septal abnormalities noted. Tympanic membranes are normal and external auditory canals are clear. Oropharynx with no redness, swelling, or masses, exudates, or evidence of obstruction, uvula midline. Mucous membranes moist. Neck: Trachea midline, no thyromegaly or masses palpated, and no cervical lymphadenopathy. Supple, full range of motion without nuchal rigidity, or vertebral point tenderness. No Meningismus. Chest/axilla: Normal chest wall appearance and motion. Nontender with no deformity. No lesions are appreciated. Cardiovascular: Regular rate and rhythm with a normal S1 and S2. No gallops, murmurs, or rubs. Normal PMI, no JVD. No pulse deficits. Respiratory: Lungs have equal breath sounds bilaterally, clear to auscultation and percussion. No rales, rhonchi or wheezes noted. No increased work of breathing, no retractions or nasal flaring. Abdomen/GI: Soft, non-tender, with normal bowel sounds. No distension or tympany. No guarding or rebound. No evidence of tenderness throughout. Back: No spinal tenderness. No costovertebral tenderness. Full range of motion. Female : Normal external genitalia. Neuro: Awake and alert, GCS 15, oriented to person, place, time, and situation. Cranial nerves II-XII grossly intact. Motor strength 5/5 in all extremities. Sensory grossly intact. Cerebellar exam normal. Normal gait. Psych: Awake, alert, with orientation to person, place and time. Behavior, mood, and affect are within normal limits. 18:47 Musculoskeletal/extremity: DVT Exam: negative Homans' sign noted on exam, no appreciated bluish discoloration, no erythema, no increased warmth, pain, swelling, tenderness, Calves: have equal circumference, POSITIVE VASCULITIS, 18:47 Skin: VASCULITIS, Vital Signs: 16:18 BP 179 / 78; Pulse 80; Resp 16 S; Temp 98.1(O); Pulse Ox 99% on R/A; Weight 38.56 kg aa5 (R); 17:00 BP 145 / 75; Pulse 71; Resp 16; Pulse Ox 100% ; me1 18:00 BP 174 / 79; Pulse 73; Resp 18; Pulse Ox 100% ; me1 19:00 BP 184 / 78; Pulse 73; Resp 18; Pulse Ox 99% ; me1 20:00 BP 175 / 81; Pulse 72; Resp 18; Temp 98.5; Pulse Ox 99% ; me1 MDM: 16:35 Medical Screening Exam initiated kate 18:51 Differential diagnosis: contusion, abrasion, tendonitis. Data reviewed: vital signs, [facility] nurses notes, lab test result(s), EKG, radiologic studies, doppler, plain films. Consideration of Admission/Observation Escalation of care including admission/observation considered. I considered the following discharge prescriptions or medication management in the emergency department Medications were administered in the Emergency Department. See MAR. Independent interpretation of the following test(s) in the Emergency Department EKG: See my EKG interpretation above CT Scan: My interpretation is CT CHEST. Test considered but Not performed: MRI: NO MRI. Care significantly affected by the following chronic conditions: Hypertension, VASCULITIS. 04/02 16:36 Order name: Basic Metabolic Panel; Complete Time: 18:30 [facility] 04/02 16:36 Order name: CBC with Diff; Complete Time: 18:30 [facility] 04/02 16:36 Order name: LFT's; Complete Time: 18:30 [facility] 04/02 16:36 Order name: Magnesium; Complete Time: 18:30 [facility] 04/02 16:36 Order name: NT PRO-BNP; Complete Time: 18:30 [facility] 04/02 16:36 Order name: PT-INR; Complete Time: 18:30 [facility] 04/02 16:36 Order name: Troponin HS; Complete Time: 18:30 [facility] 04/02 16:36 Order name: Urinalysis w/ reflexes; Complete Time: 18:30 [facility] 04/02 16:36 Order name: Lipase; Complete Time: 18:30 [facility] 04/02 16:36 Order name: XRAY Chest (1 view); Complete Time: 18:30 [facility] 04/02 16:36 Order name: US Extremity Venous W Compression Fred; Complete Time: 18:30 [facility] 04/02 18:36 Order name: CT Chest Wo Con [facility] 04/02 16:36 Order name: EKG; Complete Time: 16:37 [facility] 04/02 16:36 Order name: Cardiac monitoring; Complete Time: 20:22 [facility] 04/02 16:36 Order name: EKG - Nurse/Tech; Complete Time: 18:17 [facility] 04/02 16:36 Order name: IV Saline Lock; Complete Time: 17:52 [facility] 04/02 16:36 Order name: Labs collected and sent; Complete Time: 17:52 [facility] 04/02 16:36 Order name: O2 Per Protocol; Complete Time: 17:52 [facility] 04/02 16:36 Order name: O2 Sat Monitoring; Complete Time: 17:52 [facility] Administered Medications: 17:58 Drug: NS 0.9% IV 1000 ml IV at 75 ml/hr continuous Route: IV; Rate: 75 ml/hr; [place] [facility] [place]; 20:07 Follow up: Response: No adverse reaction; IV Status: Completed infusion me1 20:08 Drug: MethylPrednisoLONE IVP 125 mg IVP once Route: IVP; Site: right antecubital; me1 20:08 Follow up: Response: No adverse reaction me1 20:08 Drug: LevOfloxacin PO 500 mg PO once Route: PO; me1 20:08 Follow up: Response: No adverse reaction me1 20:08 Drug: Potassium PO Effervescent Tablet 25 mEq PO once; dissolve in 4 ounces of water or me1 juice Route: PO; 20:08 Follow up: Response: No adverse reaction me1 20:08 Drug: predniSONE PO 40 mg PO once Route: PO; me1 20:08 Follow up: Response: No adverse reaction me1 Disposition Summary: 04/02/24 18:54 Discharge Ordered Notes: Location: Home kate Problem: new kate Symptoms: have improved kate Condition: Stable kate Diagnosis - Edema, unspecified - LOWER EXTREMITY VASCULITIS kate - Solitary pulmonary nodule kate - Hypokalemia kate - UTI/ Urinary tract infection, site not specified kate - Abnormal findings on diagnostic imaging of other specified body structures - kate BILATERAL LUNG LESIONS, SUSPECT METS Followup: kate - With: Private Physician - When: 2 - 3 days - Reason: Recheck today's complaints, Continuance of care, Re-evaluation by your physician Followup: kate - With: Alexey Landin DO - When: 2 - 3 days - Reason: Recheck today's complaints, Re-evaluation by your physician Followup: kate - With: Rory Blount MD - When: 2 - 3 days - Reason: Recheck today's complaints, Re-evaluation by your physician Discharge Instructions: - Discharge Summary Sheet kate - Potassium Content of Foods kate - Dysuria kate - Edema kate - Urinary Tract Infection, Adult kate - Urinary Tract Infection, Adult, [id number] kate - Edema, [id number] kate - Incidental Abnormal Radiological Finding kate - Vasculitis kate - Pulmonary Nodule kate - Peripheral Edema kate Forms: - Medication Reconciliation Form kate - Antibiotic Education kate - Prescription Opioid Use kate - Patient Portal Instructions kate - Leadership Thank You Letter [facility] Prescriptions: - Potassium Chloride 20 meq Oral Packet - take 1 packet ORAL route once daily 1 packet in 6 (six) ounces of water or kate juice; Take after meal; 14 packet; Refills: 0, Product Selection Permitted - Prednisone 20 mg Oral Tablet - take 2 tablets ORAL route once daily for 5 days; 10 tablet; Refills: 0, Product kate Selection Permitted - levofloxacin 250 mg Oral tablet - take 1 tablet ORAL route once daily; 7 tablet; Refills: 0, Product Selection kate Permitted Signatures: Dispatcher [employer] EDSean Tomlinson MD MD cha Calderon, Audri RN RN aa5 Caroline Carrasco RN RN me1 Corrections: (The following items were deleted from the chart) 16:37 16:37 BASIC METABOLIC PANEL+C.LAB.BRZ ordered. EDMS EDMS 16:37 16:37 CBC+H.LAB.BRZ ordered. EDMS EDMS 16:37 16:37 HEPATIC FUNCTION+C.LAB.BRZ ordered. EDMS EDMS 16:37 16:37 MAGNESIUM+C.LAB.BRZ ordered. EDMS EDMS 16:37 16:37 PROBNP+C.LAB.BRZ ordered. EDMS EDMS 16:37 16:37 PROTIME (+INR)+COAG.LAB.BRZ ordered. EDMS EDMS 16:37 16:37 Troponin High Sensitivity+C.LAB.BRZ ordered. EDMS EDMS 16:37 16:37 Urinalysis+U.LAB.BRZ ordered. EDMS EDMS 16:37 16:37 LIPASE+C.LAB.BRZ ordered. EDMS EDMS 18:37 18:37 Thorax Wo Con+CT.RAD.BRZ ordered. EDMS EDMS
--- NOTE | 2024-04-02 18:54 | ER ---
Nurse's Notes [facility] Name: Cristina Jones Age: 88 yrs Sex: Female : 1935 Arrival Date: 04/02/2024 Time: 16:00 Bed 19 Private MD: Diagnosis: Edema, unspecified-LOWER EXTREMITY VASCULITIS;Solitary pulmonary nodule;Hypokalemia;UTI/ Urinary tract infection, site not specified;Abnormal findings on diagnostic imaging of other specified body structures-BILATERAL LUNG LESIONS, SUSPECT METS Presentation: 04/02 16:18 Chief complaint: Patient states: delbert leg swelling x 4-5 weeks, reports sent here by aa5 urgent care for high blood pressure "190/83". Coronavirus screen: At this time, the client does not indicate any symptoms associated with coronavirus-19. Ebola Screen: Patient denies travel to an Ebola-affected area in the 21 days before illness onset. Initial Sepsis Screen: Does the patient meet any 2 criteria? No. Patient's initial sepsis screen is negative. Does the patient have a suspected source of infection? No. Patient's initial sepsis screen is negative. Risk Assessment: Do you want to hurt yourself or someone else? Patient reports no desire to harm self or others. Onset of symptoms was March 2024. 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 - Infectious Disease History:: Denies. - Social history:: Smoking status: Patient denies any tobacco usage or history of. - Family history:: not pertinent. Screenin:59 [facility] ED Fall Risk Assessment (Adult) History of falling in the last 3 months, me1 including since admission No falls in past 3 months (0 pts) Confusion or Disorientation No (0 pts) Intoxicated or Sedated No (0 pts) Impaired Gait No (0 pts) Mobility Assist Device Used No (0 pt) Altered Elimination No (0 pt) Score/Fall Risk Level 0 - 2 = Low Risk Maintained a safe environment, Provided non-skid footwear, Hourly rounding (assess needs \\T\\ fall precautionary measures) done. Abuse screen: Denies threats or abuse. Nutritional screening: No deficits noted. Tuberculosis screening: No symptoms or risk factors identified. Assessment: 16:59 General: Appears comfortable, well groomed, well developed, well nourished, Behavior is me1 calm, cooperative, appropriate for age, Reports delbert leg swelling x 4-5 weeks, reports sent here by urgent care for high blood pressure "190/83". Pain: Denies pain. Neuro: Level of Consciousness is awake, alert, obeys commands, Oriented to person, place, time, situation, Appropriate for age. Cardiovascular: Patient's skin is warm and dry. Respiratory: Airway is patent Respiratory effort is even, unlabored, Respiratory pattern is regular, symmetrical. GI: No signs and/or symptoms were reported involving the gastrointestinal system. : No signs and/or symptoms were reported regarding the genitourinary system. EENT: No signs and/or symptoms were reported regarding the EENT system. Derm: Skin is intact, is healthy with good turgor, Skin is pink, warm \\T\\ dry. Musculoskeletal: Swelling present in right leg and left leg. 19:20 General: Discharge delayed as patient is in CT. me1 19:50 General: Discharge delayed as patient had questions regarding possible metastatic lung me1 nodules. Continued to educate so patient understood. . Vital Signs: 16:18 BP 179 / 78; Pulse 80; Resp 16 S; Temp 98.1(O); Pulse Ox 99% on R/A; Weight 38.56 kg aa5 (R); 17:00 BP 145 / 75; Pulse 71; Resp 16; Pulse Ox 100% ; me1 18:00 BP 174 / 79; Pulse 73; Resp 18; Pulse Ox 100% ; me1 19:00 BP 184 / 78; Pulse 73; Resp 18; Pulse Ox 99% ; me1 20:00 BP 175 / 81; Pulse 72; Resp 18; Temp 98.5; Pulse Ox 99% ; me1 ED Course: 16:06 Patient arrived in ED. ra3 16:18 Arm band placed on. aa5 16:20 Triage completed. aa5 16:35 Sean Harrison MD is Attending Physician. kate 16:42 Caroline Carrasco, RN is Primary Nurse. me1 16:59 Patient has correct armband on for positive identification. Bed in low position. Call me1 light in reach. Side rails up X2. Provided Education on: POC. Verbalized understanding.. Client placed on continuous cardiac and pulse oximetry monitoring. NIBP monitoring applied. Pulse ox on. NIBP on. 16:59 No provider procedures requiring assistance completed. me1 17:18 US Extremity Venous W Compression Delbert In Process Unspecified. EDMS 17:30 XRAY Chest (1 view) In Process Unspecified. EDMS 17:51 Initial lab(s) drawn, by me, sent to lab. Urine collected: clean catch specimen, clear. me1 Inserted saline lock: 22 gauge in right antecubital area, using aseptic technique. 17:52 Lipase Sent. me1 17:52 Urinalysis w/ reflexes Sent. me1 17:52 Basic Metabolic Panel Sent. me1 17:52 CBC with Diff Sent. me1 17:52 LFT's Sent. me1 17:52 Magnesium Sent. me1 17:52 NT PRO-BNP Sent. me1 17:52 PT-INR Sent. me1 17:52 Troponin HS Sent. me1 18:17 EKG done, by ED staff, reviewed by Sean Harrison MD. em1 18:52 Alexey Landin DO is Referral Physician. kate 19:25 CT Chest Wo Con In Process Unspecified. EDMS 19:33 Rory Blount MD is Referral Physician. kate 20:20 IV discontinued, intact, bleeding controlled, No redness/swelling at site. Pressure me1 dressing applied. Administered Medications: 17:58 Drug: NS 0.9% IV 1000 ml IV at 75 ml/hr continuous Route: IV; Rate: 75 ml/hr; Site: il1 right antecubital; 20:07 Follow up: Response: No adverse reaction; IV Status: Completed infusion me1 20:08 Drug: MethylPrednisoLONE IVP 125 mg IVP once Route: IVP; Site: right antecubital; me1 20:08 Follow up: Response: No adverse reaction me1 20:08 Drug: LevOfloxacin PO 500 mg PO once Route: PO; me1 20:08 Follow up: Response: No adverse reaction me1 20:08 Drug: Potassium PO Effervescent Tablet 25 mEq PO once; dissolve in 4 ounces of water or me1 juice Route: PO; 20:08 Follow up: Response: No adverse reaction me1 20:08 Drug: predniSONE PO 40 mg PO once Route: PO; me1 20:08 Follow up: Response: No adverse reaction me1 Medication: 16:59 VIS not applicable for this client. me1 Outcome: 18:54 Discharge ordered by . kate 20:20 Discharged to home via wheelchair, with family, il1 20:20 Condition: stable 20:20 Discharge instructions given to patient, family, Instructed on discharge instructions, follow up and referral plans. medication usage, Demonstrated understanding of instructions, follow-up care, medications, Prescriptions given X 3, 20:22 Patient left the ED. me1 Signatures: Dispatcher [employer] EDMS Sean Harrison MD MD cha Martinez, Eric em1 Radha Reyes, RN RN aa5 Caroline Carrasco RN RN me1 Linda Davies ra3 Corrections: (The following items were deleted from the chart) 16:20 16:18 BP 179 / 78; Pulse 80bpm; Resp 16bpm; Spontaneous; Pulse Ox 99% RA; Temp 98.1F aa5 Oral; aa5 16:59 16:18 Chief complaint: Patient states: delbert leg swelling x 4-5 weeks, reports sent here il1 by urgent care for high blood pressure "190/83" aa5
[2024-04-02] MEDS ORDERED: METHYLPREDNISOLONE 125 MG INJ ONE (19:06)
[2024-04-02] MEDS ORDERED: predniSONE 20 MG TAB ONE (19:07)
[2024-04-02] MEDS ORDERED: levoFLOXacin 250 MG TAB ONE (19:07)
[2024-04-02] MEDS ORDERED: POTASSIUM 25 MEQ EFFERV TAB ONE (19:07)
--- NOTE | 2024-04-02 19:42 | RAD REPORT ---
EXAMINATION: CT Thorax Wo Con CLINICAL INDICATION: Female, 88 years old. Abnormal CXR. NODULE TECHNIQUE: Axial CT scan of the chest without intravenous contrast. Multiplanar reformats were genera néstor and reviewed. One or more of the following dose reduction techniques were used: Automated exposure control, adjustment of the mA and/or kV according patient size, and/or iterative reconstruct ion. Unless otherwise specified, incidental findings do not require dedicated imaging follow-up. COMPARISON: Chest radiograph of earlier the same day. FINDINGS: LOWER NECK: Visualized thyroid gland and soft tissues are normal. LUNGS: Anterior medial left upper lobe mass measuring 3.2 x 3.0 cm, with extension to the pleura. Adj acent tubular areas of nodularity in the central left upper lobe. More superior lobulated left upper lobe 1.8 cm nodule in axial image 10. Left lingular lobulated 1.9 cm nodule on axial image 38. Lobulated left basal lower lobe nodule measuring 1.6 cm on axial image 34. This or the lingular nodule could correlate to the radiographic abnormality. Right middle lobe pleural-based nodule measur ing 1 cm on axial image 31. Right upper lobe 1.1 cm lobulated nodule on axial image 23. Multiple other smaller nodules throughout both lungs. Calcified right posterior costophrenic angle 11 mm granu sara. PLEURA: No pleural effusion. No pneumothorax. . MEDIASTINUM AND LYMPH NODES: No mediastinal mass or fluid collection. Normal size mediastinal, hilar, and axillary lymph nodes. Right hilar small calcified lymph nodes, may relate to sequelae of prior granulomatous infection OSSEOUS STRUCTURES AND CHEST WALL: Intact. UPPER ABDOMEN: Multiple right renal cysts, largest containing septal calcifications, measuring up to 4.5 cm, not significantly changed. 7 mm left renal interpolar calculus. IMPRESSION: Multiple bilateral pulmonary nodules/masses as above, largest in the medial left upper lobe measuring up to 3.2 cm. These are concerning for metastatic disease. Redemonstration of complex right upper pole renal cyst, not significantly changed, allowing for nonco ntrast evaluation. Nonobstructing left renal calculi.
[2024-04-03 07:09] VITALS: O2SAT 99
[2024-04-03 07:10] VITALS: BP 175/81; TEMP 98.5
--- NOTE | 2024-04-03 15:02 | EKG ---
Test Date: 2024-04-02 Test Time: 18:14:22 Respiratory Care Program Director: MURRAY MEASUREMENT RESULTS: Intervals: Rate: 72 GA: 144 QRSD: 76 QT: 406 QTc: 444 [place]: P: 76 GA: 144 QRS: 66 T: 37 INTERPRETIVE STATEMENTS: Sinus rhythm with marked sinus arrhythmia Nonspecific ST abnormality Abnormal ECG Compared to ECG 12/15/2023 13:30:49 ST (T wave) deviation now present Left ventricular hypertrophy no longer present Electronically Signed On 04-03-24 15:02:12 CDT by Tony Dillard
== END 2024-04-02 20:22 | disposition home or self-care (01) ==
LOC: ER 16:00
DX: I77.6 Arteritis, unspecified (principal); E87.6 Hypokalemia; N39.0 Urinary tract infection, site not specified; R91.1 Solitary pulmonary nodule; R93.89 Abnormal findings on diagnostic imaging of other specified body structures; I10 Essential (primary) hypertension
CPT/HCPCS: 96361; 93005; 85025; 81001; 80048; 36415; 83735; 85610; 80076; 84484; 83690; 83880; 71250; 71045; 93970; 96374; 99285; J7512; J2919; J7040

== ENCOUNTER 2024-06-21 16:21 | Emergency (ER) | payer OTHER ==
--- NOTE | 2024-06-21 18:55 | RAD REPORT ---
EXAM:Extremity Venous Uni Ltd HISTORY: Right leg pain TECHNIQUE: Sonographic evaluation right lower extremity performed.Grayscale, color and spectral lui sis performed on all vessels COMPARISON: March 2024. FINDINGS: Right common femoral, superficial femoral, greater saphenous, popliteal and posterior tibial veins ar e compressible and demonstrate augmentation. Doppler demonstrates good flow. IMPRESSION: No evidence of deep venous thrombosis involving the right lower extremity.
--- NOTE | 2024-06-21 19:01 | RAD REPORT ---
EXAM:Lower Extremity Artery Uni Ltd HISTORY: Right leg pain TECHNIQUE: Sonographic evaluation right lower extremity arteries performed.Grayscale, color and spect ral analysis performed on all vessels COMPARISON: None. FINDINGS: Right common femoral arterial waveform triphasic Right superficial femoral arterial waveform triphasic Right popliteal and posterior tibial arterial waveform biphasic Right dorsalis pedis arterial waveform triphasic. No high-grade stenosis/occlusion IMPRESSION: Mild right lower extremity arterial disease
[2024-06-21 19:28] LABS: PT Prothrombin Time 12.3 SECONDS (9.4-12.5); Protime INR 1.17
[2024-06-21 19:31] LABS: Absolute Lymphocytes (CBC) 0.9 K/uL (0.7-4.9); Absolute Monocytes 0.3 K/uL (0.1-1.3); Absolute Neutrophil 3.6 K/uL (1.8-8.0); Basophils % 0.6 % (0-1.3); Eosinophils % 0.3 % (0-4.4); Hematocrit 35.9 % (36.0-45.0); Lymphocytes % 19.3 % (15.3-44.8); MCH 27.8 pg (27.0-35.0); MCHC 33.4 g/dL (32.0-36.0); MCV 83.3 fL (80-100); MPV 7.7 fL (7.6-11.3); Monocytes % 7.1 % (3.3-12.3); Neutrophils % 72.7 % (41.7-73.7); Nucleated Red Blood Cells % 0.1 % (0-0); Platelets 328 thou/uL (152-406); RBC Red Blood Cell Count 4.32 M/uL (3.86-4.86); Red Cell Distribution Width 13.8 % (12.1-15.2)
[2024-06-21 19:42] LABS: Albumin 3.6 g/dL (3.4-5.0); Albumin/Globulin Ratio 0.8 (1.1-1.8); Anion Gap 7.3 mEq/L (5.0-15.0); Bilirubin Direct 0.2 mg/dL (0-0.2); Bilirubin Indirect, Calculated 0.5 mg/dL (0.2-0.8); Bilirubin Total 0.7 mg/dL (0.2-1.0); Globulin 4.7 g/dL (2.3-3.5); Magnesium 2.1 mg/dL (1.6-2.4); Potassium 3.3 mEq/L (3.5-5.1); Protein, Total 8.3 g/dL (6.4-8.2)
--- NOTE | 2024-06-21 20:00 | ER ---
Nurse's Notes [facility] Name: Cristina Jones Age: 88 yrs Sex: Female : 1935 Arrival Date: 06/21/2024 Time: 16:21 Bed 5 Private MD: Diagnosis: Cellulitis of right lower limb Presentation: 06/21 16:35 Chief complaint: Patient states: right leg redness and swelling onset Thursday. pt noted cm10 to have swelling and redness to right lower leg. Pt states that she is having difficulty ambulating. Coronavirus screen: Client denies travel out of the [place] in the last 14 days. Ebola Screen: Patient denies travel to an Ebola-affected area in the 21 days before illness onset. Initial Sepsis Screen: Does the patient meet any 2 criteria? No. Patient's initial sepsis screen is negative. Does the patient have a suspected source of infection? No. Patient's initial sepsis screen is negative. Risk Assessment: Do you want to hurt yourself or someone else? Patient reports no desire to harm self or others. Onset of symptoms was June 19, 2024. 16:35 Method Of Arrival: Wheelchair cm10 16:35 Acuity: MARVIN 3 cm10 Triage Assessment: 16:37 General: Appears in no apparent distress. comfortable, Behavior is calm, cooperative. cm10 Pain: Complains of pain in right leg Pain does not radiate. Pain currently is 8 out of 10 on a pain scale. Neuro: No deficits noted. Level of Consciousness is awake, alert, obeys commands, Oriented to person, place, time, situation, Appropriate for age. Respiratory: No deficits noted. Airway is patent Respiratory effort is even, unlabored, Respiratory pattern is regular, symmetrical. 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 - Infectious Disease History:: Denies. - Social history:: Smoking status: Patient denies any tobacco usage or history of. Screenin:10 [facility] ED Fall Risk Assessment (Adult) History of falling in the last 3 months, ay including since admission No falls in past 3 months (0 pts) Confusion or Disorientation No (0 pts) Intoxicated or Sedated No (0 pts) Impaired Gait No (0 pts) Mobility Assist Device Used No (0 pt) Altered Elimination No (0 pt) Score/Fall Risk Level 0 - 2 = Low Risk Oriented to surroundings, Maintained a safe environment, Educated pt \T\ family on fall prevention, incl call for assistance when getting out of bed. Abuse screen: Denies threats or abuse. Denies injuries from another. Nutritional screening: No deficits noted. Tuberculosis screening: No symptoms or risk factors identified. Assessment: 19:10 General: Appears in no apparent distress. uncomfortable, Behavior is calm, cooperative. ay Pain: Complains of pain in right leg. Neuro: Level of Consciousness is awake, alert, obeys commands, Oriented to person, place, time, situation, Speech is normal. Cardiovascular: Capillary refill < 3 seconds. Respiratory: Airway is patent Respiratory effort is even, unlabored, Respiratory pattern is regular, symmetrical. GI: Abdomen is flat, Bowel sounds present X 4 quads. : No signs and/or symptoms were reported regarding the genitourinary system. EENT: No signs and/or symptoms were reported regarding the EENT system. Derm: Reports pain. Musculoskeletal: No signs and/or symptoms reported regarding the musculoskeletal system. Vital Signs: 16:35 BP 133 / 74; Pulse 83; Resp 17; Temp 98.2; Pulse Ox 97% ; Weight 44.45 kg; Height 4 ft. cm10 11 in. ; Pain 8/10; 20:00 BP 148 / 81; Pulse 71; Resp 20; Pulse Ox 100% on R/A; ay 16:35 Body Mass Index 19.79 (44.45 kg, 149.86 cm) cm10 16:35 Pain Scale: Adult cm10 [place] Coma Score: 19:10 Eye Response: spontaneous(4). Motor Response: obeys commands(6). Verbal Response: ay oriented(5). Total: 15. ED Course: 16:26 Patient arrived in ED. im 16:36 Triage completed. cm10 16:37 Arm band placed on right wrist. Patient placed in an exam room, on a stretcher. cm10 16:46 Sean Gallo PA is PHCP. cp 16:46 Sean Harrison MD is Attending Physician. cp 18:50 US Extremity Venous Unilateral Ltd In Process Unspecified. EDMS 18:50 Lower Extremity Artery Uni Ltd US In Process Unspecified. EDMS 18:56 Patient moved back from ultrasound. db 19:10 Patient has correct armband on for positive identification. Bed in low position. Call ay light in reach. Side rails up X2. Adult w/ patient. Provided Education on: plan of care. 19:10 No provider procedures requiring assistance completed. ay 19:15 Basic Metabolic Panel Sent. vk 19:15 CBC with Diff Sent. vk 19:15 LFT's Sent. vk 19:15 NT PRO-BNP Sent. vk 19:15 PT-INR Sent. vk 19:15 Troponin HS Sent. vk 19:15 Initial lab(s) drawn, by me, sent to lab. vk 19:16 Inserted saline lock: 20 gauge in right antecubital area, using aseptic technique. vk Blood collected. Flushed with 10 mL NS. 20:04 Dianne Hilliard, RN is Primary Nurse. ay 20:40 IV discontinued, intact, bleeding controlled, No redness/swelling at site. Pressure ay dressing applied. Administered Medications: 20:37 Drug: Rocephin IV 1 grams IV at calculated rate once; Given slow IV push per pharmacy ay instructions Route: IV; Rate: calculated rate; Site: right antecubital; 20:51 Follow up: Response: No adverse reaction ay 20:52 Follow up: Response: No adverse reaction ay 20:37 Drug: Doxycycline PO 100 mg PO once Route: PO; ay 20:51 Follow up: Response: No adverse reaction ay Medication: 19:10 VIS not applicable for this client. ay Outcome: 20:00 Discharge ordered by . cp 20:46 Discharged to home ambulatory, ay 20:46 Condition: stable 20:46 Discharge instructions given to patient, Instructed on discharge instructions, follow up and referral plans. the need for transfer, Demonstrated understanding of instructions, follow-up care, medications, Prescriptions given X 1, 20:52 Patient left the ED. ay Signatures: Dispatcher [employer] EDMS Sean Gallo PA PA cp Benton, Danielle RN Magaly Kwong Clarissa RN RN cm10 Tran Shelton vk Yakubu, Awudu, RN RN ay
--- NOTE | 2024-06-21 20:00 | EDPHYS ---
Physician Documentation [facility] Name: Cristina Jones Age: 88 yrs Sex: Female : 1935 Arrival Date: 06/21/2024 Time: 16:21 Bed 5 Private MD: ED Physician Sean Harrison HPI: 06/21 18:10 This 88 yrs old Female presents to ER via Wheelchair with complaints of Leg Swelling - cp right. 18:10 The patient presents with swelling, tenderness, redness. cp 18:10 The complaints affect the lateral aspect of right calf and right calf. Context: cp resulted from an unknown cause, the patient can fully bear weight, the patient is able to ambulate, with mild difficulty, Problem is a result from a previous injury: No. Onset: The symptoms/episode began/occurred 2 day(s) ago. Associated signs and symptoms: Pertinent positives: calf tenderness, swelling, warmth, Pertinent negatives fever, numbness. Treatment prior to arrival includes: no previous treatment. Severity of symptoms: in the emergency department the symptoms are unchanged, despite home interventions. 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 - Infectious Disease History:: Denies. - Social history:: Smoking status: Patient denies any tobacco usage or history of. ROS: 18:15 Constitutional: Negative for body aches, chills, fever, poor PO intake, cp 18:15 Respiratory: Negative for cough, shortness of breath, wheezing, cp 18:15 Abdomen/GI: Negative for abdominal pain, nausea, vomiting, and diarrhea, 18:15 MS/extremity: Positive for pain, swelling, tenderness, of the right lower leg, Negative for injury or acute deformity, paresthesias, 18:15 Eyes: Negative for injury, pain, redness, and discharge, cp 18:15 Cardiovascular: Negative for chest pain, palpitations, cp 18:15 Back: Negative for pain at rest, pain with movement, 18:15 Neuro: Negative for altered mental status, dizziness, headache, numbness, syncope, weakness, 18:15 All other systems are negative, Exam: 18:20 Constitutional: The patient appears in no acute distress, alert, awake, cp non-diaphoretic, non-toxic, well developed, frail, 18:20 Head/Face: Normocephalic, atraumatic. cp 18:20 Eyes: Periorbital structures: appear normal, Conjunctiva: normal, no exudate, no injection, Sclera: no appreciated abnormality, Lids and lashes: appear normal, bilaterally, 18:20 ENT: External ear(s): are unremarkable, Nose: is normal, Posterior pharynx: Airway: no evidence of obstruction, patent, 18:20 Neck: ROM/movement: is normal, is supple, without pain, no range of motions limitations, 18:20 Chest/axilla: Inspection: normal, 18:20 Cardiovascular: Rate: normal, Rhythm: regular, 18:20 Respiratory: the patient does not display signs of respiratory distress, Respirations: normal, no use of accessory muscles, no retractions, labored breathing, is not present, Breath sounds: are clear throughout, no decreased breath sounds, 18:20 Abdomen/GI: Inspection: abdomen appears normal, Palpation: abdomen is soft and non-tender, in all quadrants, 18:20 Back: pain, is absent, 18:20 Musculoskeletal/extremity: Extremities: noted in the right calf and lateral aspect of right calf: swelling, tenderness, very mild erythema, mild ecchymosis noted, ROM: full active range of motion, in the right leg, Pulses: noted to be 2+ in the right dorsalis pedis artery, the right lower leg Sensation intact. 18:20 Neuro: Orientation: to person, place \T\ time. Mentation: is normal, Motor: moves all fours, strength is normal, Sensation: is normal, 20:27 ECG was reviewed by the Attending Physician. cp Vital Signs: 16:35 BP 133 / 74; Pulse 83; Resp 17; Temp 98.2; Pulse Ox 97% ; Weight 44.45 kg; Height 4 ft. cm10 11 in. ; Pain 8/10; 20:00 BP 148 / 81; Pulse 71; Resp 20; Pulse Ox 100% on R/A; ay 16:35 Body Mass Index 19.79 (44.45 kg, 149.86 cm) cm10 16:35 Pain Scale: Adult cm10 [place] Coma Score: 19:10 Eye Response: spontaneous(4). Motor Response: obeys commands(6). Verbal Response: ay oriented(5). Total: 15. MDM: 16:47 Medical Screening Exam initiated cp 19:00 Differential diagnosis: cellulitis, abscess, dvt, sepsis. cp 20:00 Data reviewed: vital signs, nurses notes, lab test result(s), radiologic studies, plain cp films, and as a result, I will discharge patient. 20:00 I considered the following discharge prescriptions or medication management in the emergency department Medications were administered in the Emergency Department. See MAR. Care significantly affected by the following chronic conditions: Hypertension. Counseling: I had a detailed discussion with the patient and/or guardian regarding the historical points, exam findings, and any diagnostic results supporting the discharge/admit diagnosis, lab results, radiology results, the need for outpatient follow up, an traffic control technician, to return to the emergency department if symptoms worsen or persist or if there are any questions or concerns that arise at home. 06/21 18:08 Order name: Basic Metabolic Panel; Complete Time: 19:46 06/21 19:46 Interpretation: Normal except: NA 135; K 3.3; GFR 71. 06/21 18:08 Order name: CBC with Diff; Complete Time: 19:46 06/21 19:47 Interpretation: Normal except: HCT 35.9. 06/21 18:08 Order name: LFT's; Complete Time: 19:46 06/21 18:08 Order name: Magnesium; Complete Time: 19:46 06/21 18:08 Order name: NT PRO-BNP; Complete Time: 19:46 06/21 18:08 Order name: PT-INR; Complete Time: 19:46 06/21 18:08 Order name: Troponin HS; Complete Time: 19:46 06/21 18:08 Order name: US Extremity Venous Unilateral Ltd; Complete Time: 19:46 06/21 19:47 Interpretation: Report reviewed. 06/21 18:08 Order name: Lower Extremity Artery Uni Ltd US; Complete Time: 19:46 06/21 18:08 Order name: Cardiac monitoring; Complete Time: 19:34 06/21 18:08 Order name: EKG - Nurse/Tech; Complete Time: 20:41 06/21 18:08 Order name: IV Saline Lock; Complete Time: 19:15 cp 06/21 18:08 Order name: Labs collected and sent; Complete Time: 19:15 cp 06/21 18:08 Order name: O2 Per Protocol; Complete Time: 19:15 cp 06/21 18:08 Order name: O2 Sat Monitoring; Complete Time: 19:15 cp 06/21 19:59 Order name: Mehdi Wrap; Complete Time: 20:51 cp EC:27 Rate is 69 beats/min. Rhythm is regular. FL interval is normal. QRS interval is normal. cp QT interval is normal. T waves are Inverted in lead aVR. Interpreted by me. Reviewed by me. Administered Medications: 20:37 Drug: Rocephin IV 1 grams IV at calculated rate once; Given slow IV push per pharmacy ay instructions Route: IV; Rate: calculated rate; Site: right antecubital; 20:51 Follow up: Response: No adverse reaction ay 20:52 Follow up: Response: No adverse reaction ay 20:37 Drug: Doxycycline PO 100 mg PO once Route: PO; ay 20:51 Follow up: Response: No adverse reaction ay Disposition Summary: 06/21/24 20:00 Discharge Ordered Notes: Location: Home cp Problem: new cp Symptoms: have improved cp Condition: Stable cp Diagnosis - Cellulitis of right lower limb cp Followup: cp - With: Private Physician - When: 2 - 3 days - Reason: Recheck today's complaints Discharge Instructions: - Discharge Summary Sheet cp - Cellulitis, Adult cp Forms: - Medication Reconciliation Form cp - Antibiotic Education cp - Prescription Opioid Use cp - Patient Portal Instructions cp - Leadership Thank You Letter cp Prescriptions: - Doxycycline Hyclate 100 mg Oral Tablet - take 1 tablet ORAL route every 12 hours; 20 tablet; Refills: 0, Product cp Selection Permitted Addendum: 06/23/2024 09:36 Co-signature as Attending Physician, Sean Harrison MD I agree with the assessment and c rivero plan of care. Signatures: Dispatcher [employer] Sean Kang MD MD cha Page, Corey, PA PA cp Martinez, Clarissa, RN RN cm10 Dianne Hilliard RN RN ay Corrections: (The following items were deleted from the chart) 06/21 18:08 18:08 BASIC METABOLIC PANEL+C.LAB.BRZ ordered. EDMS EDMS 18:08 18:08 CBC+H.LAB.BRZ ordered. EDMS EDMS 18:08 18:08 HEPATIC FUNCTION+C.LAB.BRZ ordered. EDMS EDMS 18:08 18:08 MAGNESIUM+C.LAB.BRZ ordered. EDMS EDMS 18:08 18:08 PROBNP+C.LAB.BRZ ordered. EDMS EDMS 18:08 18:08 PROTIME (+INR)+COAG.LAB.BRZ ordered. EDMS EDMS 18:08 18:08 Troponin High Sensitivity+C.LAB.BRZ ordered. EDMS EDMS 18:09 18:09 Extremity Venous Uni Ltd+US.RAD.BRZ ordered. EDMS EDMS 18:09 18:09 Lower Extremity Artery Uni Ltd+US.RAD.BRZ ordered. EDMS EDMS
[2024-06-21] MEDS ORDERED: CEFTRIAXONE 1000 MG/VIAL ONE (20:08)
[2024-06-21] MEDS ORDERED: DOXYCYCLINE 100 MG CAP PO ONE (20:08)
--- NOTE | 2024-06-23 11:54 | EKG ---
Test Date: 2024-06-21 Test Time: 20:20:22 Advertising Account Manager: MADELINE MEASUREMENT RESULTS: Intervals: Rate: 69 FL: 152 QRSD: 90 QT: 410 QTc: 439 [place]: P: 77 FL: 152 QRS: 59 T: 41 INTERPRETIVE STATEMENTS: Sinus rhythm with premature atrial complexes Otherwise normal ECG Compared to ECG 04/02/2024 18:14:22 Atrial premature complex(es) now present Sinus arrhythmia no longer present ST (T wave) deviation no longer present Electronically Signed On 06-23-24 11:53:22 ANIMAL HUSBANDRY MANAGER by Tony Dillard
--- NOTE | 2024-06-23 11:54 | EKG ---
Test Date: 2024-06-21 Test Time: 20:22:15 Delivery Man: MADELINE MEASUREMENT RESULTS: Intervals: Rate: 69 DE: 158 QRSD: 84 QT: 412 QTc: 441 [place]: P: 54 DE: 158 QRS: 62 T: 48 INTERPRETIVE STATEMENTS: Normal sinus rhythm Normal ECG Compared to ECG 06/21/2024 20:20:22 Atrial premature complex(es) no longer present Electronically Signed On 06-23-24 11:53:19 INTERNATIONAL LOGISTICS COORDINATOR by Tony Dillard
[2024-06-24 01:42] VITALS: BP 148/81; TEMP 98.2; O2SAT 100
== END 2024-06-21 20:52 | disposition home or self-care (01) ==
LOC: ER 16:21
DX: L03.115 Cellulitis of right lower limb (principal); I10 Essential (primary) hypertension
CPT/HCPCS: 93005 ×2; 85025; 80048; 36415; 83735; 85610; 80076; 84484; 83880; 93926; 93971; 96374; 99285; J0696